=== PATIENT | male | born 1995 | race African-American/Black ===

== ENCOUNTER 2025-06-27 05:09 | Emergency (ER) | payer MEDICAID ==
[~2025-06-27] VITALS: Ht 177.8 cm; Wt 80.0 kg
[2025-06-27 05:25] VITALS: O2SAT 100
[2025-06-27] MEDS: SODIUM CHLORIDE 0.9% 1,000 ML IV ONE (06:19)
[2025-06-27] MEDS: LORAZEPAM 2MG/ML UD SYRINGE IV NR (06:22)
[2025-06-27 06:26] LABS: BASOPHILS % 0.5 % (0.0-2.0); EOSINOPHILS % 2.3 % (0.0-5.0); HEMATOCRIT. 49.2 % (42.0-52.0); HEMOGLOBIN. 16.8 g/dL (14.0-18.0); LYMPHOCYTES % 36.1 % (20.0-50.0); MEAN PLATELET VOLUME 8.4 fl (7.4-10.4); MONOCYTES % 7.8 % (2.0-8.0); NEUTROPHILS % 53.3 % (40.0-76.0); PLATELET 334 x1000/uL (130-400); RED BLOOD CELL COUNT 5.78 mill/uL (4.7-6.1); RED CELL DISTRIBUTION WIDTH 12.9 % (11.6-14.6)
[2025-06-27 06:28] LABS: CREATININE 1.3 mg/dL (0.6-1.3); UREA NITROGEN BLOOD 10 mg/dL (9-23)
[2025-06-27 06:30] LABS: TROPONIN I HIGH SENSITIVITY < 4 ng/L (3.0-53)
[2025-06-27] MEDS ORDERED: HYDR-459 MT (09:55)
[2025-06-27] MEDS ORDERED: LORAZEPAM 1MG TABLET PO ONE (10:00)
[2025-06-27 10:42] VITALS: BP 123/69; PULSE 96; RESP 14; TEMP 36.9; O2SAT 99
== END 2025-06-27 10:50 | disposition home or self-care (01) ==
LOC: ER 05:09
DX: F41.0 Panic disorder [episodic paroxysmal anxiety] (principal); R06.02 Shortness of breath; R00.2 Palpitations
CPT/HCPCS: 99285; 96360; 71045; 80048; 85025; 85379; 84484; 36415; 93005; J7030; J2060

== ENCOUNTER 2025-06-27 11:36 | Emergency (ER) | payer MEDICAID ==
[~2025-06-27 11:36] MED LIST: HYDR-459 MT
[2025-06-27 11:41] VITALS: PULSE 92; RESP 18; O2SAT 100
== END 2025-06-27 14:32 | disposition left against medical advice (07) ==
LOC: ER 11:36
DX: R00.2 Palpitations (principal); R06.02 Shortness of breath; Z53.21 Procedure and treatment not carried out due to patient leaving prior to being seen by health care provider
CPT/HCPCS: 93005

== ENCOUNTER 2025-08-28 15:24 | Emergency (ER) | payer MEDICAID ==
[~2025-08-28] VITALS: Ht 182.9 cm; Wt 77.0 kg
[2025-08-28 15:27] VITALS: TEMP 98.1; O2SAT 100
[2025-08-28 16:37] LABS: BASOPHILS % 0.3 % (0.0-2.0); EOSINOPHILS % 2.2 % (0.0-5.0); HEMATOCRIT. 45.5 % (42.0-52.0); HEMOGLOBIN. 15.5 g/dL (14.0-18.0); LYMPHOCYTES % 27.8 % (20.0-50.0); MEAN PLATELET VOLUME 8.5 fl (7.4-10.4); MONOCYTES % 6.1 % (2.0-8.0); NEUTROPHILS % 63.6 % (40.0-76.0); PLATELET 303 x1000/uL (130-400); RED BLOOD CELL COUNT 5.31 mill/uL (4.7-6.1); RED CELL DISTRIBUTION WIDTH 13.0 % (11.6-14.6)
[2025-08-28] MEDS: ACETAMINOPHEN WITH CODEINE 300/30MG TABLET PO ONE (16:43)
[2025-08-28 16:45] LABS: CREATININE 1.1 mg/dL (0.6-1.3); TROPONIN I HIGH SENSITIVITY < 4 ng/L (3.0-53)
[2025-08-28 16:46] LABS: UREA NITROGEN BLOOD < 5 mg/dL (9-23)
[2025-08-28 16:47] LABS: ASPARTATE AMINOTRANSFERASE 25 IU/L (<34)
[2025-08-28 16:48] LABS: BILIRUBIN DIRECT 0.3 mg/dL (<=3.0); BILIRUBIN TOTAL 0.9 mg/dL (0.1-1.0); PROTEIN TOTAL 7.4 g/dL (6.0-8.3)
[2025-08-28 17:20] LABS: *AMPHETAMINES SCREEN URINE NEGATIVE (NEGATIVE)
[2025-08-28 17:21] LABS: *BARBITURATES SCREEN URINE NEGATIVE (NEGATIVE); *BENZODIAZEPINES SCREEN URINE NEGATIVE (NEGATIVE); *COCAINE SCREEN URINE NEGATIVE (NEGATIVE); CANNABINOID URINE SCREEN NEGATIVE (NEGATIVE); ECSTASY MDMA SCREEN URINE NEGATIVE (NEGATIVE); METHADONE URINE SCREEN NEGATIVE (NEGATIVE); OPIATES URINE SCREEN NEGATIVE (NEGATIVE); PHENCYCLIDINE URINE SCREEN NEGATIVE (NEGATIVE)
[2025-08-28 18:12] LABS: CLARITY URINE CLEAR (CLEAR); COLOR URINE YELLOW (YELLOW); GLUCOSE URINE NEGATIVE (NEGATIVE); KETONES URINE NEGATIVE (NEGATIVE); LEUKOCYTE ESTERASE URINE NEGATIVE (NEGATIVE); NITRITE URINE NEGATIVE (NEGATIVE); OCCULT BLOOD URINE NEGATIVE (NEGATIVE); PH URINE 6.5 (4.5-8.0); PROTEIN URINE NEGATIVE (NEGATIVE); SPECIFIC GRAVITY URINE 1.006 (1.005-1.030); UROBILINOGEN URINE 0.2 E.U./dL (0.2-1.0)
[2025-08-28 18:30] VITALS: BP 135/86; PULSE 104; RESP 14; O2SAT 100
[2025-08-28] MEDS: MULTIVITAMINS,THER W-MINERALS TABLET PO SCH (18:45)
== END 2025-08-28 19:49 | disposition home or self-care (01) ==
LOC: ER 15:24
DX: R00.2 Palpitations (principal); R07.89 Other chest pain; Z79.899 Other long term (current) drug therapy
CPT/HCPCS: 36415; 71045; 80048; 80076; 80305; 80320; 81003; 83880; 84443; 84484; 85025; 85379; 93005; 99285; G0480